=== PATIENT | female | born 1965 | race Caucasian/White ===

== ENCOUNTER 2018-10-29 18:50 | Emergency (ER) | payer BC ==
--- OUTSIDE RECORDS SUMMARY | 2018-10-29 19:21 | XMS REPORT | Continuity of Care Document ---
:1965 External Reference #:[id number] Author Name Rubi Mendoza, RENETTA Address [address] [facility] [place] [address] Care Team Providers Name Role Phone Robe Hagen MD Care Team Information Warehouse Unloader Unavailable Robe Hagen MD Primary Care Physician Unavailable Payers Type Date Identification Numbers Payment Provider Subscriber Effective: Policy Number: [id number] / Of JESSICA Mtz 2011 PayID: [id number] [address] [address] [place] [address] Advance Directives Description No Information Available Problems Date Description Provider Status Onset: 09/24/2011 Gynecologic examination Robe Hagen M.D. Active Onset: 09/24/2011 Benign essential hypertension Robe Hagen M.D. Active Onset: 09/24/2011 Excessive and frequent menstruation Robe Hagen M.D. Active Onset: 09/08/2012 Anxiety state Robe Hagen M.D. Active Onset: 09/08/2012 Depressive disorder Robe Hagen M.D. Active Onset: 09/20/2014 Acute maxillary sinusitis Robe Hagen M.D. Active Family History Date Family Member(s) Problem(s) Comments Father CVA @ 65 years old. Passed @ 81 years old of CVA while hospitalized. High cholesterol. Mother age 68 lung cancer (she quit smoking 25 years ago) - non small cell adenocarcinoma First Brother HTN Maternal Aunt lung cancer age 41 Text Input There are two other men in the family with lung cancer - pt's mother's maternaluncle and his father. Social History Type Date Description Comments Sex Unknown Tobacco Use Start: Unknown Former Cigarette smoked for 4 years , End: Unknown Smoker some worry about possibility of lung cancer ETOH Use Occasional Recreational Drug Use Denies Drug Use Tobacco Use Start: Unknown Patient is a former End: Unknown smoker Smoking Status Reviewed: 10/13/18 Patient is a former smoker Exercise Type/Frequency Exercises regularly Current Allergies, Adverse Reactions, Alerts Date Description Reaction Status Severity Comments 07/27/2009 Sulfa Active rash 07/27/2009 Erythromycin Active GI Upset 03/31/2012 Lisinopril Active Cough Medications Medication Date Status Form Strength Qnty SIG Indications Ordering Provider Amoxicillin/Clavul 10/13 Active Tablets 875-125mg 20tabs 1 by J01.90 Rubi whyte mouth Mendoza, twice a MOBILITY DEVELOPER day x 10 days Sertraline HCL 07/05 Active Tablets 50mg 90tabs 1 by mouth Cristopher, every CLINIC LEAD day Hydrochlorothiazid 01/19 Active Tablets 25mg 90tabs take 1 tablet Cristopher, by mouth CLINIC LEAD once daily Losartan Potassium 08/27 Active Tablets 50mg 90tabs 1 by I10 mouth Cristopher, every CLINIC LEAD day Amoxicillin 01/27 Hx Tablets 875mg 20tabs 1 by J01.00 mouth Hilsdorf, - twice a Afnp-C Symbicort 07/05 Hx Aerosol 80-4.5mcg sample 2 puff R0 /Act twice a Cristopher, - day CLINIC LEAD 09/29 Montelukast Sodium 07/05 Hx Tablets 10mg 30tabs 1 by mouth Cristopher, - every CLINIC LEAD 09/29 evening Sertraline HCL 10/26 Hx Tablets 25mg 60tabs take 1-2 Robe Harrison tablets Breiman, - by mouth M.D. 07/05 once daily Augmentin 09/20 Hx Tablets 500-125mg 20tabs 1 by Robe Harrison mouth Breiman, - twice a M.D. Amoxicillin 11/15 Hx Tablets 875mg 28tabs 1 po bid 461.1 Torie Hannah, - CLINIC LEAD 03/01 Doxycycline 03/22 Hx Tablets 100mg 2tabs take 2 Robe Harrison cl pills Jeanie Hagen M.D. 04/23 Sertraline HCL 02/19 Hx Tablets 25mg 60tabs take 1-2 Robe Harrison tablets Hieu - by mouth M.Yang 04/23 once daily Zoloft 09/08 Hx Tablets 25mg 180tabs 1-2 po Robe Harrison qd Jeanie Hagen M.D. 10/26 Xanax 04/24 Hx Tablets 0.25mg 30tabs 1 tab Robe Harrison po Jeanie Hagen prior M.Yang 08/27 to flight Lisinopril 10/04 Hx Tablets 10mg 90tabs 1 po qd Robe Harrison Jeanie Hagen M.D. 03/31 Prednisone 10/04 Hx Tablets 20mg 18tabs 3 x 3 Robe Harrison days 2 Jeanie Hagen x 3 days .DLaverne 10/04 1 x 3 days Hydrochlorothiazid 09/24 Hx Capsules 12.5mg 180caps 2 PO Robe Harrison Q.DJeanie Quiñonez M.D. 01/19 Immunizations Description No Information Available Vital Signs Date Vital Result Comment 10/13/2018 11:17am BP Systolic 120 mmHg BP Diastolic 84 mmHg Heart Rate 96 /min Body Temperature 96.6 F Weight 276.00 lb 03/02/2018 3:58pm BP Systolic 136 mmHg BP Diastolic 80 mmHg Heart Rate 80 /min Body Temperature 99.2 F Respiratory Rate 16 /min Weight 277.00 lb 01/27/2018 9:51am BP Systolic 128 mmHg BP Diastolic 60 mmHg Heart Rate 84 /min Body Temperature 98.4 F Respiratory Rate 16 /min Weight 272.38 lb 07/05/2016 12:58pm BP Systolic 120 mmHg BP Diastolic 86 mmHg Heart Rate 68 /min Body Temperature 97.9 F Respiratory Rate 18 /min Weight 254.00 lb 05/16/2015 2:33pm BP Systolic 130 mmHg BP Diastolic 80 mmHg Heart Rate 62 /min Body Temperature 99.1 F Respiratory Rate 20 /min Height 64.5 inches 5'4.50" Weight 251.00 lb BMI (Body Mass Index) 42.4 kg/m2 09/20/2014 3:02pm BP Systolic 130 mmHg BP Diastolic 80 mmHg Heart Rate 64 /min Body Temperature 97.7 F Respiratory Rate 20 /min Height 64.5 inches 5'4.50" Weight 245.00 lb BMI (Body Mass Index) 41.4 kg/m2 03/01/2014 4:07pm BP Systolic 130 mmHg BP Diastolic 84 mmHg Heart Rate 78 /min Body Temperature 98.6 F Respiratory Rate 16 /min Height 64.5 inches 5'4.50" Weight 271.00 lb BMI (Body Mass Index) 45.8 kg/m2 11/15/2013 9:03am BP Systolic 122 mmHg BP Diastolic 80 mmHg Heart Rate 96 /min Body Temperature 98.5 F Height 64.5 inches 5'4.50" Weight 272.25 lb BMI (Body Mass Index) 46.0 kg/m2 08/31/2013 4:24pm BP Systolic 124 mmHg BP Diastolic 80 mmHg Heart Rate 74 /min Body Temperature 97.2 F Respiratory Rate 18 /min Height 64.5 inches 5'4.50" Weight 265.00 lb BMI (Body Mass Index) 44.8 kg/m2 05/01/2013 9:45am BP Systolic 122 mmHg BP Diastolic 80 mmHg Heart Rate 72 /min Body Temperature 97.4 F Respiratory Rate 16 /min Height 64.5 inches 5'4.50" Weight 271.00 lb BMI (Body Mass Index) 45.8 kg/m2 04/23/2013 8:56am BP Systolic 142 mmHg BP Diastolic 92 mmHg Heart Rate 74 /min Body Temperature 97.6 F Respiratory Rate 16 /min Height 64.5 inches 5'4.50" Weight 271.00 lb BMI (Body Mass Index) 45.8 kg/m2 12/21/2012 3:13pm BP Systolic 122 mmHg BP Diastolic 80 mmHg Heart Rate 74 /min Body Temperature 98.4 F Respiratory Rate 18 /min Height 64.5 inches 5'4.50" Weight 262.00 lb BMI (Body Mass Index) 44.3 kg/m2 10/09/2012 3:15pm BP Systolic 130 mmHg BP Diastolic 90 mmHg Heart Rate 82 /min Body Temperature 98.7 F Height 64.5 inches 5'4.50" Weight 260.00 lb BMI (Body Mass Index) 43.9 kg/m2 09/08/2012 2:59pm BP Systolic 154 mmHg BP Diastolic 90 mmHg Heart Rate 84 /min Body Temperature 98.0 F Height 64.5 inches 5'4.50" Weight 255.00 lb BMI (Body Mass Index) 43.1 kg/m2 08/27/2012 3:57pm BP Systolic 130 mmHg BP Diastolic 90 mmHg Heart Rate 80 /min Body Temperature 98.7 F Height 64.5 inches 5'4.50" Weight 253.00 lb BMI (Body Mass Index) 42.8 kg/m2 04/24/2012 8:57am BP Systolic 112 mmHg BP Diastolic 70 mmHg Heart Rate 66 /min Body Temperature 98.0 F Respiratory Rate 20 /min Height 64.5 inches 5'4.50" Weight 236.00 lb BMI (Body Mass Index) 39.9 kg/m2 03/31/2012 8:59am BP Systolic 136 mmHg BP Diastolic 80 mmHg Heart Rate 84 /min Body Temperature 98.2 F Height 64.5 inches 5'4.50" Weight 245.00 lb BMI (Body Mass Index) 41.4 kg/m2 03/10/2012 3:35pm BP Systolic 170 mmHg BP Diastolic 90 mmHg Heart Rate 84 /min Body Temperature 98.9 F Height 64.5 inches 5'4.50" Weight 254.00 lb BMI (Body Mass Index) 42.9 kg/m2 11/05/2011 3:20pm BP Systolic 138 mmHg BP Diastolic 80 mmHg Heart Rate 84 /min Body Temperature 98.8 F Height 64.5 inches 5'4.50" Weight 259.00 lb BMI (Body Mass Index) 43.8 kg/m2 10/04/2011 4:03pm BP Systolic 160 mmHg BP Diastolic 110 mmHg Heart Rate 82 /min Body Temperature 98.3 F Height 64.5 inches 5'4.50" Weight 251.00 lb BMI (Body Mass Index) 42.4 kg/m2 09/24/2011 3:06pm BP Systolic 160 mmHg BP Diastolic 86 mmHg Heart Rate 92 /min Height 64.5 inches 5'4.50" Weight 258.00 lb BMI (Body Mass Index) 43.6 kg/m2 08/30/2010 11:06am BP Systolic 152 mmHg BP Diastolic 90 mmHg Heart Rate 68 /min Body Temperature 98.4 F Respiratory Rate 16 /min Height 64.5 inches 5'4.50" Weight 265.00 lb BMI (Body Mass Index) 44.8 kg/m2 08/22/2010 5:15pm BP Systolic 148 mmHg BP Diastolic 88 mmHg Heart Rate 76 /min Height 64.5 inches 5'4.50" Weight 269.00 lb BMI (Body Mass Index) 45.5 kg/m2 06/04/2010 3:15pm BP Systolic 138 mmHg BP Diastolic 80 mmHg Heart Rate 80 /min Body Temperature 99.0 F Height 64.5 inches 5'4.50" Weight 261.00 lb BMI (Body Mass Index) 44.1 kg/m2 07/27/2009 9:44am BP Systolic 150 mmHg BP Diastolic 90 mmHg Heart Rate 72 /min Body Temperature 98.8 F Height 64.5 inches 5'4.50" Weight 260.00 lb BMI (Body Mass Index) 43.9 kg/m2 Results Test Date Facility Test Result H/L Range Note Laboratory test 05/13/2018 [facility] [place] SEE RESULT 1, 2 finding BELOW Laboratory test 03/02/2018 [facility] Sedimentation Rate 39mm finding (607)- - Hemoglobin A1c (Fma) 6.1 % High 4.1-5.7 Laboratory test 03/02/2018 Mikel Maddison ([facility]) LDL, Direct 139 mg/dL High 0-130 finding Lipid Profile 03/02/2018 Morin Maddison ([facility]) Cholesterol 217 mg/dL High 120-200 Triglycerides 313 mg/dL High 30-200 HDL Cholesterol 46 mg/dL 30-85 LDL (Calculated) 108 CALC 0-129 VLDL Cholesterol 63 mg/dL High 0-50 HDL Risk Factor 4.7 CALC High 0.0-4.4 Comprehensive Metabolic 03/02/2018 Mikel Maddison ([facility]) Sodium 136 mEq/L 134-149 Prof Potassium 3.8 mEq/L 3.6-5.5 Chloride 100 mEq/L 94-112 Carbon Dioxide 26 mEq/L 21-32 Glucose 112 mg/dL High 70-105 BUN 11 mg/dL 6-26 Creatinine 0.6 mg/dL 0.6-1.4 BUN/Creat Ratio 18.3 CALC 8.0-36.0 Calcium 9.8 mg/dL 8.6-10.2 Total Protein 6.8 g/dL 6.4-8.3 Albumin 4.0 g/dL 3.8-5.5 Globulin 2.8 g/dL 2.0-4.8 A/G Ratio 1.4 CALC 0.6-2.3 Alk. Phosphatase 76 U/L 30-110 Alt (SGPT) 14 U/L 7-35 Ast (Sgot) 13 U/L 5-34 Total Bilirubin 0.3 mg/dL 0.2-1.3 GFR Non- >60 ml/min/1.73m^ >=60 GFR >60 ml/min/1.73m^ >=60 CBC Electronic a 03/02/2018 Mikel Maddison ([facility]) WBC 8.3 x10^3/UL 4.0- 10.0 RBC 4.24 x10^6/UL 3.93-6.00 HGB 13.2 g/dL 12.0-17.0 HCT 38 % 35-50 MCV 89.2 fL 80.0-95.0 MCH 31.1 pg 25.6-32.2 MCHC 34.9 g/dL 32.2-36.0 RDW-CV 12.9 % 11.6-14.4 PLT 366 x10^3/UL 163-400 MPV 9.6 fL 9.4-12.4 Juancarlos# 6.04 x10^3/UL 1.56-6.13 Lymph# 1.66 x10^3/UL 1.18-3.74 Rapides# 0.42 x10^3/UL 0.24-0.82 Eos # 0.2 x10^3/UL 0.0-0.5 Baso # 0.03 x10^3/UL 0.01-0.08 Juancarlos% 72.5 % High 34.0-70.0 Lymph % 19.9 % Low 20.0-52.0 Rapides% 5.0 % 5.0-12.0 Eos% 1.8 % 0.7-7.0 Baso% 0.4 % 0.1-1.2 Laboratory test 03/02/2018 Mikel Maddison ([facility]) Free T4 1.04 ng/dL 0.75- 1.54 finding TSH 2.90 mIU/L 0.50-6.00 Comprehensive Metabolic 05/16/2015 Mikel Washburn ([facility]) Sodium 136 mEq/L 134-149 Prof Potassium 3.4 mEq/L Low 3.6-5.5 3 Chloride 99 mEq/L 94-112 Carbon Dioxide 29 mEq/L 21-32 Glucose 138 mg/dL High 70-105 4 BUN 11 mg/dL 6-26 Creatinine 0.6 mg/dL 0.6-1.4 BUN/Creat Ratio 18.3 CALC 8.0-36.0 Calcium 8.8 mg/dL 8.6-10.2 Total Protein 6.9 g/dL 6.4-8.3 Albumin 3.8 g/dL 3.8-5.5 Globulin 3.1 g/dL 2.0-4.8 A/G Ratio 1.2 CALC 0.6-2.3 Alk. Phosphatase 66 U/L 30-110 Alt (SGPT) 17 U/L 7-35 Ast (Sgot) 16 U/L 5-34 Total Bilirubin 0.1 mg/dL Low 0.2-1.3 GFR Non- >60 ml/min/1.73m^ >=60 GFR >60 ml/min/1.73m^ >=60 Lipid Profile 05/16/2015 Mikel Maddison (a) Cholesterol 219 mg/dL High 120-200 Triglycerides 364 mg/dL High 30-200 HDL Cholesterol 39 mg/dL 30-85 LDL (Calculated) 107 CALC 0-129 VLDL Cholesterol 73 mg/dL High 0-50 HDL Risk Factor 5.6 CALC High 0.0-4.4 Laboratory test finding 05/16/2015 Mikel Washburn (a) TSH 2.65 mIU/L 0.50-6.00 LDL, Direct 144 mg/dL High 0-130 Comprehensive Metabolic 03/01/2014 Mikel Washburn (a) Sodium 138 mEq/L 134-149 Prof Potassium 3.2 mEq/L Low 3.6-5.5 5 Chloride 104 mEq/L 94-112 Carbon Dioxide 25 mEq/L 21-32 Glucose 122 mg/dL High 70-105 6 BUN 17 mg/dL 6-26 Creatinine 0.8 mg/dL 0.6-1.4 BUN/Creat Ratio 21.3 CALC 8.0-36.0 Calcium 9.6 mg/dL 8.6-10.2 Total Protein 8.1 g/dL 6.3-8.1 Albumin 4.7 g/dL 3.8-5.5 Globulin 3.4 g/dL 2.0-4.8 A/G Ratio 1.4 CALC 0.6-2.3 Alk. Phosphatase 80 U/L 30-110 Alt (SGPT) 19 U/L 7-35 Ast (Sgot) 14 U/L 5-34 Total Bilirubin 0.3 mg/dL 0.2-1.3 CBC Electronic (a) 03/01/2014 [facility] WBC 9.2 3.6-9.6 (607)- - RBC 4.27 3.90-5.70 Hemoglobin (Fma/CMC/CTX) 13.5 g/dL 12.1 - 17.2 Hematocrit (Fma/CMC/CTX) 39.9 % 36.1 - 50.3 Platelets 319 10^3/ul 150-400 Lymph% 22.5 % 17.0-48.0 Mixed% 5.3 Neutrophils % 72.2 Mean Corpuscular Vol 93 82.2-97.4 Mean Corpuscular Hemoglobin 31.7 27.6-33.3 Mean Corpuscular Hemo Concen 33.9 32.0-36.0 RDW 12.4 11.6-13.7 Mean Platelet Volume 7.2 5.5-11.0 Basic Metabolic Profile 12/21/2012 Morin Maddison ([facility]) BUN 13 mg/dL 6- 26 Calcium 9.4 mg/dL 8.6-10.2 Chloride 98 mEq/L 94-112 Creatinine 0.7 mg/dL 0.6-1.4 Carbon Dioxide 27 mEq/L 21-32 Glucose 107 mg/dL High 70-105 Sodium 137 mEq/L 134-149 Potassium 4.0 mEq/L 3.6-5.5 BUN/Creat Ratio 17.0 Calc 8.0-36.0 Lipid Profile 04/24/2012 Morin Maddison (a) Cholesterol 189 mg/dL 120- 200 HDL 29 mg/dL Low 30-85 7 Triglycerides 89 mg/dL 30-200 HDL Risk Factor 6.5 CALC High 0.0-4.0 LDL (Calculated) 142 CALC High 0-129 VLDL (Calculated) 18 mg/dL 0-50 Laboratory test 09/24/2011 [facility] Thin Prep SEE NOTE [address] W/HPV(Lsil/NICCI/Asc) [place] [address] [phone] Ua - Non Micro 09/24/2011 [facility] Appearance CLEAR (a) (607)- - Color YELLOW Glucose NEG Bilirubin NEG Ketones NEG SP Grav 1.025 Blood NEG PH 5.0 Protein NEG Urobil 0.2 Nitrite NEG Leukocytes (Fma/CMC/[facility]) NEG CBC Electronic (a) 09/24/2011 [facility] WBC 9.4 3.6-9.6 (607)- - RBC 4.50 3.90-5.70 Hemoglobin (Fma/CMC/CTX) 13.4 g/dL 12.1 - 17.2 Hematocrit (Fma/CMC/CTX) 41.7 % 36.1 - 50.3 Platelets 373 10^3/ul 150-400 Lymph% 17.2 Low 20.5-51.1 Mixed% 5.6 Neutrophils % 77.2 Mean Corpuscular Vol 93 82.2-97.4 Mean Corpuscular Hemoglobin 29.9 27.6-33.3 Mean Corpuscular Hemo Concen 32.2 32.0-36.0 RDW 12.5 11.6-13.7 Mean Platelet Volume 7.3 6.5-11.0 Comprehensive Metabolic 09/24/2011 Morin Maddison ([facility]) Albumin 4.3 g/dL 3.8-5.5 Prof Alk. Phos. 80 U/L 30-110 Alt (SGPT) 24 U/L 7-35 Ast (Sgot) 19 U/L 5-34 BUN 14 mg/dL 6-26 Calcium 8.8 mg/dL 8.6-10.2 Chloride 103 mEq/L 94-112 Creatinine 0.7 mg/dL 0.6-1.4 Carbon Dioxide 22 mEq/L 21-32 Glucose 98 mg/dL 70-105 Sodium 137 mEq/L 134-149 Total Bilirubin 0.2 mg/dL 0.2-1.3 Total Protein 7.0 g/dL 6.3-8.1 Potassium 4.1 mEq/L 3.6-5.5 Globulin 2.8 g/dL 2.0-4.8 A/G Ratio 1.5 Calc 0.6-2.2 BUN/Creat Ratio 20.5 Calc 8.0-36.0 Laboratory test 08/30/2010 [facility] Thin Prep SEE NOTE [address] W/HPV(Lsil/NICCI/Asc) [place], [place] [id number] [phone] Ua - Non Micro 08/30/2010 [facility] Medicine Appearance CLEAR (a) (607)- - Color YELLOW Glucose NEG Bilirubin NEG Ketones NEG SP Grav <=1.005 Blood NEG PH 5.0 Protein NEG Urobil 0.2 E.U./dL Nitrite NEG Leukocytes (Fma/CMC/[facility]rex) NEG Comprehensive Metabolic 07/27/2009 Mikel Maddison ([facility]) Albumin 4.3 g/dL 3.8-5.5 10 Prof Alk. Phos. 69 U/L 30-110 Alt (SGPT) 14 U/L 7-35 Ast (Sgot) 22 U/L 5-34 BUN 14 mg/dL 6-26 Calcium 9.0 mg/dL 8.6-10.2 Chloride 103 mEq/L 94-112 Creatinine 0.7 mg/dL 0.6-1.4 Carbon Dioxide 22 mEq/L 21-32 Glucose 108 mg/dL High 70-105 Sodium 139 mEq/L 134-149 Total Bilirubin 0.4 mg/dL 0.2-1.3 Total Protein 6.8 g/dL 6.3-8.1 Potassium 4.5 mEq/L 3.6-5.5 Globulin 2.5 g/dL 2.0-4.8 A/G Ratio 1.7 Calc 0.6-2.2 BUN/Creat Ratio 18.5 Calc 8.0-36.0 Lipid Profile 07/27/2009 Mikel Maddison ([facility]) Cholesterol 189 mg/dL 120- 200 HDL 34 mg/dL 30-85 Triglycerides 109 mg/dL 30-200 HDL Risk Factor 5.6 CALC 4.2-7.0 LDL (Calculated) 133 CALC High 0-129 VLDL (Calculated) 22 mg/dL 0-50 Complete Blood Count 07/27/2009 Mikel Maddison (a) WBC 6.5 x10^3/uL 3.6-9.6 Gran# 4.9 x10^3/uL 1.5-7.2 Gran% 74.9 % 42.2-75.2 HCT 40 % 36-50 HGB 13.3 g/dL 12.1-17.2 Lymph# 1.4 x10^3/uL 0.7-4.9 Lymph% 21.5 % 20.5-51.1 MCH 31.2 pg 27.6-33.3 MCV 92.6 fL 82.2-97.4 MCHC 33.7 g/dL 33.0-35.5 Mo# 0.2 x10^3/uL 0.1-0.9 Mo% 3.6 % 1.7-9.3 MPV 7.9 fL 7.4-10.4 PLT 283 x10^3/uL 150-400 RBC 4.27 x10^6/uL 3.90-5.70 RDW 12.4 % 11.6-13.7 Laboratory test finding 07/27/2009 Morin Maddison ([facility]) TSH 1.22 mIU/L 0.50-6.00 1 [id number] 2 SEE RESULT BELOW Name: TANIASARAIALYCIAEVELIA : [address]: Avinash Willis DO Acct: [id number] Unit: [id number] AGE: 52 Location: [facility] Re05/13/18 SEX: F Status: DEP REF SPEC: [id number] YECENIA: 05/13/18-[address]: Avinash Willis DO REQ: [id number] RECD: 05/13/18 STATUS: BAHMAN SPARKS DR: Shantell Cooper MOBILITY DEVELOPER _ ORDERED: LEVEL 4 COMMENTS: [id number] FINAL DIAGNOSIS Colon, transverse, biopsy: -- Tubular adenoma. -- No high grade dysplasia or malignancy. -- Hyperplastic polyp. CLINICAL HISTORY Screening/Surveillance for malignancy in asymptomatic patient POST-OPERATIVE DIAGNOSIS Colonoscopy: transverse colon 0.3 ? 0.4 cm (2); mild ureña diverticulosis; terminal ileum normal; conclusion: add fiber GROSS DESCRIPTION The specimen is received in formalin labeled, Biopsy Transverse Polyps, and consists of two lozada-pink irregular to polypoid soft tissue fragments measuring 0.4 x 0.4 x 0.2 cm and 1.0 by up to 0.3 x 0.2 cm, which are entirely submitted in one cassette. Signed by and Reported on: Torie Matthews MD 05/14/18 1222 END OF REPORT DEPARTMENT OF PATHOLOGY, [address] [place] [address] Angel Pink M.D. Director [facility] # [id number] 3 RESULTS VERIFIED BY REPEAT ANALYSIS 4 consistent w/ previous results 5 RESULTS VERIFIED BY REPEAT ANALYSIS 6 RESULTS VERIFIED BY REPEAT ANALYSIS 7 RESULT [facility]IAN'D 8 [facility] DEPARTMENT OF PATHOLOGY or Extension 7212 QUALITY COMPLIANCE MANAGER CYTOLOGY REPORT PATIENT: EVELIA MTZ : 1965 AGE: 46 Y SEX: F ACCT: [id number] PROCEDURE DATE: 09/24/2011 DATE RECEIVED: 09/25/2011 REQUESTING PHYSICIAN: ROBE HAGEN MD [place] [facility] [id number] PATIENT DATA: [id number] SPECIMEN SUBMITTED: * * (HPVII) THIN PREP W/HPV (LSIL/ASC/NICCI) * * ENDOCERVICAL RELEVANT HISTORY: LMP: 09/16/2011 Contraceptive: TUBAL Menarche: Y Prev.normal: 08/31 : 2 Para: 2 SPECIMEN ADEQUACY SATISFACTORY FOR EVALUATION, ENDOCERVICAL TRANSFORMATION ZONE COMPONENT PRESENT GENERAL CATEGORIZATION NEGATIVE FOR INTRAEPITHELIAL LESIONS OR MALIGNANCY RECOMMENDATIONS Thin Prep Pap tests are examined with an FDA approved location-guidance system. ADDITIONAL COPIES SENT TO: Screened/Rescreened Electronically Signed Sign Out Date/Time: by: by: RACQUEL DALTON, 09/25/2011 16:22 CT(ASCP) The Pap smear is a screening test designed to aid in the detection of premalignant and malignant conditions of the uterine cervix. It is not a diagnostic procedure and should not be used as the sole means of detecting cervical cancer. Both false-positive and false-negative reports do occur. Performed @ [facility], [address] [place] [id number] [employer] DEPARTMENT OF PATHOLOGY or Extension 4080 QUALITY COMPLIANCE MANAGER CYTOLOGY REPORT PATIENT: EVELIA MTZ : 1965 AGE: 45 Y SEX: F ACCT: [id number] PROCEDURE DATE: 08/30/2010 DATE RECEIVED: 08/31/2010 REQUESTING PHYSICIAN: COLLIN OVIEDO [place] [facility] [place]. [id number] PATIENT DATA: [id number] SPECIMEN SUBMITTED: * * (HPVII) THIN PREP W/HPV (LSIL/ASC/NICCI) * * ENDOCERVICAL RELEVANT HISTORY: LMP: 08/22/2010 Contraceptive: TUBAL : 2 Prev.normal: 2001 Para: 2 SPECIMEN ADEQUACY SATISFACTORY FOR EVALUATION, ENDOCERVICAL TRANSFORMATION ZONE COMPONENT PRESENT GENERAL CATEGORIZATION NEGATIVE FOR INTRAEPITHELIAL LESIONS OR MALIGNANCY ADDITIONAL COPIES SENT TO: Screened/Rescreened Electronically Signed Sign Out Date/Time: by: by: ALEX REBOLLEDO, 09/03/2010 13:40 CT(ASCP) Thin Prep Pap tests are examined with an FDA-approved location-guidance system ([id number]). Performed @ [facility] [address] [place] [id number] FASTING Procedures Date Code Description Status 05/13/2018 [id number] Colonoscopy Completed 06/16/2015 [id number] Mammogram Completed 05/19/2015 [id number] Mammogram Completed Encounters Type Date Location Provider Dx Diagnosis Office Visit 03/02/2018 [facility] Shantell Cooper, M25.511 Pain in right 4:00p Afnp-C shoulder R10.11 Right upper quadrant pain Z13.220 Encounter for screening for lipoid disorders R73.09 Other abnormal glucose Z12.11 Encounter for screening for malignant neoplasm of colon E78.1 Pure hyperglyceridemia Office Visit 01/27/2018 9:45a Main Office Shantell Cooper, J01.00 Acute maxillary Afnp-C sinusitis, unspecified Office Visit 07/05/2016 1:00p Main Office OZZY Kendall Z00.01 Encounter for general adult medical exam w abnormal findings D48.5 Neoplasm of uncertain behavior of skin R05 Cough Office Visit 05/16/2015 2:10p [facility] Robe Harrison 401.1 Shilpa Hagen M.D. Benign 311 Depressive Disorder Not Elsewhere Spec 272.1 Hypertriglyceridemia Pure Office Visit 09/20/2014 2:20p [facility] Robe Harrison 461.0 Sinusitis Acute uGnner Hagen Maxillary Office Visit 03/01/2014 4:00p [facility] Robe Harrison 401.1 Shilpa Hagen M.D. Benign 311 Depressive Disorder Not Elsewhere Spec Office Visit 11/15/2013 9:00a [facility] Torie 461.1 Sinusitis Acute Hannah, CLINIC LEAD Frontal Office Visit 08/31/2013 4:20p [facility] Robe Harrison 401.1 Shilpa Hagen M.D. Benign Office Visit 05/01/2013 9:45a Main Office Sherine Nicholas 784.0 Headache CLINIC LEAD Office Visit 04/23/2013 9:00a Main Office Robe Grant.1 Shilpa Hagen M.D. Benign 789.01 Pain Abdominal Right Upper Quadrant Office Visit 12/21/2012 3:20p Main Office Robe Grant.1 Hypertension Ronda Hagen M.D. Office Visit 10/09/2012 3:10p Main Office Robe Grant.1 Hypertension Ronda Hagen M.D. 300.00 Anxiety State Unspec Office Visit 09/08/2012 2:40p [facility] Robe Grant.1 Shilpa Hagen M.D. Benign 300.00 Anxiety State Unspec 311 Depressive Disorder Not Elsewhere Spec Office Visit 08/27/2012 3:45p Main Office Kay Menendez, 401.1 Hypertension Afnp-C Benign Office Visit 04/24/2012 9:00a Main Office Robe Harriosn 401.1 Shilpa Hagen M.D. Benign Office Visit 03/31/2012 9:00a [facility] Robe Grant.1 Shilpa Hagen M.D. Benign Office Visit 03/10/2012 3:10p [facility] Robe Grant.1 Shilpa Hagen M.D. Benign Office Visit 11/05/2011 3:10p [facility] Robe Grant.1 Shilpa Hagne M.D. Benign Office Visit 10/04/2011 4:00p Main Office Roeb Grant.1 Shilpa Hagen M.D. Benign Office Visit 09/24/2011 2:40p [facility] Robe Harrison V72.31 Routine Semiconductor Dies Loader Gunner Hagen Examination 401.1 Hypertension Benign 626.2 Menstruation Excessive Or Frequent Office Visit 08/30/2010 11:00a [facility] Sherine Nicholas V72.31 Routine [employer]iconductor Dies Loader CLINIC LEAD Examination Office Visit 08/22/2010 5:20p Main Office Robe Harrison 723.1 Cervicalgia Gunner Hagen Office Visit 06/04/2010 3:15p Main Office Sherine Nicholas, 448.1 Nevus CLINIC LEAD Non-Neoplastic 723.1 Cervicalgia Office Visit 07/27/2009 9:40a [facility] Robe Harrison 401.1 Shilpa Hagen M.D. Benign 789.01 Pain Abdominal Right Upper Quadrant Plan of Treatment 10/13/2018 - Rubi Mendoza, NPJ01.90 Acute sinusitis, unspecifiedNew Medication:Amoxicillin/Clavulanate Potassium 875-125 mg - 1 by mouth twice a day x 10 daysComments:Supportive care: 1) Make sure you are resting. This is the only way the body can take the energy it needs to heal itself. 2) Fluids, fluids, fluids! - Drink a lot of water or other caffeine free, clearliquids - Use a humidifier in your room at night or perform steam inhalations (20-30 mins ) three times a day- If tolerated, use a saline nasal spray to help clear out your sinuses 3) Cough and blow it out, the more you can get out of your system the better4) For throat pain: try using an adult dose ofchildren's Tylenol to help coat your throat and give you some pain relief. 5) Sleep with the head ofthe bed up6) Avoid cigarette smoke, caffeine, alcoholSuspect this is a secondary infection, therefore will treat with some agumentinWe expect you to begin to feel better in 48-72 hours after starting antibiotic therapy, if you are not improving or begin to get worse, please contact the office to be seen again.Z12.31 Encounter for screening mammogram for malignant neoplasm of breastComments:A mammogram has been ordered.AllComments:~B_~U_Medication Management~b_~u_ Patient Understands medications he 's taking? Yes No Are there Barriers to Adherence? Yes No Has the patient been asked about herbal supplements and therapies, and OTC meds? Yes No ~B_~U_Care Plan~b_~u_1. Patient has been queried about patient's goals/preferences and functional/lifestyle goals at relevant visits. If relevant, describe: na2. Treatment goals as explained to the patient: above3. Are there barriers to meeting treatment goals? Yes No If Yes, please describe:4. Self- Management goals as described to the patient:Yes NoAs always, we strongly encourage a healthy diet and making physical activity a part of your every day life. If you have questions about how or where to start, please contact the office.Follow up:Please schedule a full annual visit at your earliest convenience - you are past due for preventative maintenance
--- NOTE | 2018-10-29 19:30 | UC ---
Respiratory Complaint HPI - History of Current Complaint Stated Complaint: CHEST CONGESTION Time Seen by Provider: 10/29/18 19:18 - Allergies/Home Medications Allergies/Adverse Reactions: Allergies Allergy/AdvReac Type Severity Reaction Status Date / Time lisinopril Allergy Unknown Verified 10/29/18 19:37 Reaction Details Sulfa (Sulfonamide Allergy Unknown Verified 10/29/18 19:37 Antibiotics) Reaction Details erythromycin Allergy Unknown Uncoded 10/29/18 19:37 Reaction Details PMH/Surg Hx/FS Hx/Imm Hx - Surgical History Surgical History: None Physical Exam Respiratory: Positive: Crackles - R middle Respiratory Course/Dx - Course Course Of Treatment: Febrile but good O2. Her blood pressure was also high which I've asked her to talk to pcp about. Discharge - Sign-Out/Discharge Documenting (check all that apply): Patient Departure All imaging exams completed and their final reports reviewed: No - Discharge Plan Condition: Good Disposition: HOME Patient Education Materials: Fever in Adults (ED) Referrals: Umer Hagen MD [Primary Care Provider] - Additional Instructions: I suspect you have viral pneumonia. You just finished an antibiotic that does treat pneumonia if it were bacterial. Please follow up with your pcp about your blood pressure. - Billing Disposition and Condition Condition: GOOD Disposition: Home
[2018-10-29 19:36] VITALS: BP 164/86
[2018-10-29 20:21] LABS: Influenza A Molecular NEGATIVE (Negative); Influenza B Molecular NEGATIVE (Negative)
--- NOTE | 2018-10-30 14:39 | UC ---
- Progress Note Progress Note: OFFICIAL RADIOLOGY REPORT REVIEWED. NO EVIDENCE FOR ACTIVE CARDIOPULMONARY DISEASE. PLS NOTIFY PT. Course/Dx - Diagnoses Provider Diagnoses: Fever Discharge - Sign-Out/Discharge Documenting (check all that apply): Post-Discharge Follow Up All imaging exams completed and their final reports reviewed: Yes - Discharge Plan Condition: Good Disposition: HOME Prescriptions: Albuterol HFA INHALER* [Ventolin HFA Inhaler*] 2 puff INH Q4H PRN #1 mdi PRN Reason: Cough Benzonatate CAP* [Tessalon 100 MG CAP*] 100 mg PO TID 5 Days #15 cap Patient Education Materials: Fever in Adults (ED) Referrals: Umer Hagen MD [Primary Care Provider] - Additional Instructions: I suspect you have viral pneumonia. You just finished an antibiotic that does treat pneumonia if it were bacterial. Please follow up with your pcp about your blood pressure. - Billing Disposition and Condition Condition: GOOD Disposition: Home
== END 2018-10-29 20:43 | disposition home or self-care (01) ==
LOC: UCEAST 18:50
DX: R09.89 Other specified symptoms and signs involving the circulatory and respiratory systems (principal); Z88.1 Allergy status to other antibiotic agents; Z88.2 Allergy status to sulfonamides; Z88.8 Allergy status to other drugs, medicaments and biological substances
CPT/HCPCS: 71046; 99212; G0463